=== PATIENT | female | born 1945 | race Caucasian/White ===

== ENCOUNTER 2019-06-27 07:13 | Day surgery (SDC) | payer OTHER ==
[2019-06-27 07:41] VITALS: BMI 27.9
[2019-06-27 08:55] VITALS: TEMP 97.5
[2019-06-27 09:02] VITALS: PULSE 54
[2019-06-27 12:54] VITALS: BP 103/69
--- NOTE | 2019-06-28 17:13 | PATH ---
Surgical Pathology Report Patient Name: TALA FARIA [facility]. Rec. #: [id number] /Age/Gender: 1945 (Age: 73) / F Account: [id number] Location: [facility]-ENDOSCOPY Taken: 06/27/2019 Received: 06/27/2019 Reported: 06/28/2019 Physicians: Gilbert Mondragon M.D. Specimen(s) Received RIGHT COLON POLYP Clinical History Family history of colon cancer, history colon adenoma Postoperative diagnosis: Diverticulosis, polyp Final Diagnosis COLON, RIGHT, POLYP, BIOPSY: POLYPOID COLONIC MUCOSA WITH MILD FOCAL SUPERFICIAL HYPERPLASTIC FEATURES. Electronically Signed Martha Andrews M.D. Gross Description Received in formalin, labeled "right colon polyp" is a schulz, irregular portion of soft tissue measuring 0.3 cm. in greatest dimension. The specimen is submitted in toto in one cassette. MLSZ/06/27/2019 sanjim/06/27/2019
== END 2019-06-27 10:10 | disposition home or self-care (01) ==
LOC: JASU-ENDO 07:13
PROVIDERS: ATTEND Internal Medicine Gastroenterology
PROC: 0DBK8ZX Excision of Ascending Colon, Via Natural or Artificial Opening Endoscopic, Diagnostic (ICD-10-PCS; principal; 2019-06-27 08:00)
DX: Z12.11 Encounter for screening for malignant neoplasm of colon (principal); Z86.010 Personal history of colon polyps; D12.2 Benign neoplasm of ascending colon; K57.30 Diverticulosis of large intestine without perforation or abscess without bleeding
CPT/HCPCS: 88305-TC

== ENCOUNTER 2020-12-10 05:40 | Day surgery (SDC) | payer OTHER ==
[2020-12-10] MEDS ORDERED: KETAMINE HCL 200 MG/20 ML VIAL ONE (06:35)
[2020-12-10 08:55] VITALS: TEMP 97.7
[2020-12-10 11:08] VITALS: BP 140/80; PULSE 62
== END 2020-12-10 10:15 | disposition home or self-care (01) ==
LOC: JASU-ENDO 05:40
PROVIDERS: ATTEND Internal Medicine Gastroenterology
PROC: 0DB98ZX Excision of Duodenum, Via Natural or Artificial Opening Endoscopic, Diagnostic (ICD-10-PCS; 2020-12-10)
PROC: 0DB78ZX Excision of Stomach, Pylorus, Via Natural or Artificial Opening Endoscopic, Diagnostic (ICD-10-PCS; 2020-12-10)
PROC: 0DJD8ZZ Inspection of Lower Intestinal Tract, Via Natural or Artificial Opening Endoscopic (ICD-10-PCS; principal; 2020-12-10 08:00)
DX: Z12.11 Encounter for screening for malignant neoplasm of colon (principal); Z86.010 Personal history of colon polyps; K57.30 Diverticulosis of large intestine without perforation or abscess without bleeding; K64.8 Other hemorrhoids; K25.3 Acute gastric ulcer without hemorrhage or perforation; K44.9 Diaphragmatic hernia without obstruction or gangrene; K29.70 Gastritis, unspecified, without bleeding; D64.9 Anemia, unspecified; Z80.0 Family history of malignant neoplasm of digestive organs
CPT/HCPCS: 88305-TC; 88342-TC

== ENCOUNTER 2021-06-03 04:54 | Day surgery (SDC) | payer OTHER ==
[2021-06-03 10:30] VITALS: BMI 28.3
[2021-06-03 11:07] VITALS: TEMP 97.2
[2021-06-03 12:18] VITALS: BP 129/76; PULSE 58
[2021-06-03 12:42] LABS: BASO % 0.9 % (0-2.0); EOS % 2.3 % (0-4.5); HEMATOCRIT 40.3 % (32.4-45.2); HEMOGLOBIN 13.7 GM/dL (10.7-15.3); LYMPH % 39.4 % (8-40); MCH 27.2 pg (25.7-33.7); MEAN CELL VOLUME 79.8 fl (80-96); MEAN PLT VOLUME 9.3 fl (7.5-11.1); MONO % 8.2 % (3.8-10.2); NEUT % 49.2 % (42.8-82.8); PLATELET COUNT 243 10^3/uL (134-434); RBC 5.05 M/mm3 (3.60-5.2); RDW 13.9 % (11.6-15.6)
[2021-06-03 13:47] LABS: CHLORIDE 107 mmol/L (98-107); SODIUM 138 mmol/L (136-145)
[2021-06-03 13:50] LABS: CALCIUM 9.1 mg/dL (8.5-10.1)
[2021-06-03 13:51] LABS: ALBUMIN 3.7 g/dl (3.4-5.0); ANION GAP 2 MMOL/L (8-16); BLOOD UREA NITROGEN 25.5 mg/dL (7-18); CO2 29 mmol/L (21-32); GLUCOSE,RANDOM 96 mg/dL (74-106)
[2021-06-03 13:53] LABS: IRON SERUM 56 ug/dL (50-175); SGPT/ALT 33 U/L (13-61)
[2021-06-03 13:54] LABS: SGOT/AST 20 U/L (15-37); TOTAL IRON BINDING CAPACITY 428 ug/dL (250-450)
[2021-06-03 13:56] LABS: BILIRUBIN,TOTAL 0.5 mg/dL (0.2-1); TOT PROT 7.1 g/dl (6.4-8.2)
[2021-06-03 13:57] LABS: ALK PHOS 77 U/L (45-117)
== END 2021-06-03 12:25 | disposition home or self-care (01) ==
LOC: JASU-ENDO 04:54
PROVIDERS: ATTEND Internal Medicine Gastroenterology
PROC: 0DB68ZX Excision of Stomach, Via Natural or Artificial Opening Endoscopic, Diagnostic (ICD-10-PCS; principal; 2021-06-03 11:00)
DX: K25.9 Gastric ulcer, unspecified as acute or chronic, without hemorrhage or perforation (principal); K22.8 Other specified diseases of esophagus; K44.9 Diaphragmatic hernia without obstruction or gangrene; K29.50 Unspecified chronic gastritis without bleeding
CPT/HCPCS: 36415; 80053; 82728; 82941; 83540; 83550; 84260; 85025; 86140; 86316; 88305-TC; 88342-TC

== ENCOUNTER 2025-07-14 06:22 | Day surgery (SDC) | payer OTHER ==
[2025-07-14 09:24] VITALS: TEMP 97.4
[2025-07-14 09:43] VITALS: RESP 18
[2025-07-14 09:52] VITALS: PULSE 60
[2025-07-14 10:28] VITALS: BP 135/71
== END 2025-07-14 10:28 | disposition home or self-care (01) ==
LOC: JASU-ENDO 06:22
PROVIDERS: ATTEND Internal Medicine Gastroenterology
PROC: 0DBL8ZX Excision of Transverse Colon, Via Natural or Artificial Opening Endoscopic, Diagnostic (ICD-10-PCS; 2025-07-14)
PROC: 0DBK8ZX Excision of Ascending Colon, Via Natural or Artificial Opening Endoscopic, Diagnostic (ICD-10-PCS; 2025-07-14)
PROC: 0DB98ZX Excision of Duodenum, Via Natural or Artificial Opening Endoscopic, Diagnostic (ICD-10-PCS; 2025-07-14)
PROC: 0DB78ZX Excision of Stomach, Pylorus, Via Natural or Artificial Opening Endoscopic, Diagnostic (ICD-10-PCS; 2025-07-14)
PROC: 0DB68ZX Excision of Stomach, Via Natural or Artificial Opening Endoscopic, Diagnostic (ICD-10-PCS; 2025-07-14)
PROC: 0DBJ8ZX Excision of Appendix, Via Natural or Artificial Opening Endoscopic, Diagnostic (ICD-10-PCS; principal; 2025-07-14 09:00)
DX: Z12.11 Encounter for screening for malignant neoplasm of colon (principal); D12.2 Benign neoplasm of ascending colon; D12.3 Benign neoplasm of transverse colon; K63.5 Polyp of colon; K55.20 Angiodysplasia of colon without hemorrhage; K64.8 Other hemorrhoids; Z80.0 Family history of malignant neoplasm of digestive organs; K44.9 Diaphragmatic hernia without obstruction or gangrene; K25.9 Gastric ulcer, unspecified as acute or chronic, without hemorrhage or perforation
CPT/HCPCS: 88305-TC; 88342-TC